=== PATIENT | female | born 2000 | race Caucasian/White ===

== ENCOUNTER 2023-01-03 09:37 | Inpatient (IN) | payer MEDICAID ==
[~2023-01-03] VITALS: Ht 157.5 cm; Wt 63.5 kg
[2023-01-03] MEDS ORDERED: BUTORPHANOL TARTRATE 2 MG/ML VIAL IV PRN (11:30)
[2023-01-03] MEDS ORDERED: NALOXONE HCL 0.4 MG/ML 1ML VIAL IM PRN (11:30)
[2023-01-03] MEDS ORDERED: LIDOCAINE HCL 1% 20ML VIAL (Pyxis) INJ INFIL SCH (11:30)
[2023-01-03] MEDS ORDERED: BUTORPHANOL TARTRATE 2 MG/ML VIAL IM PRN ×2 (11:30)
[2023-01-03] MEDS ORDERED: METHYLERGONOVINE MALEATE 0.2 MG/ML IM PRN ×2 (11:30→19:30)
[2023-01-03] MEDS ORDERED: CARBOPROST TROMETHAMINE 250 MCG/ML AMPUL IM PRN (11:30)
[2023-01-03] MEDS ORDERED: LACTATED RINGERS 1,000 ML IV SCH (11:30)
[2023-01-03 13:44] LABS: CLARITY URINE CLOUDY (CLEAR); COLOR URINE YELLOW (YELLOW); KETONES URINE NEGATIVE (NEGATIVE); LEUKOCYTE ESTERASE URINE 3+ (NEGATIVE); NITRITE URINE NEGATIVE (NEGATIVE); OCCULT BLOOD URINE 2+ (NEGATIVE); PROTEIN URINE TRACE (NEGATIVE); SPECIFIC GRAVITY URINE 1.013 (1.005-1.030)
[2023-01-03 13:47] LABS: BASOPHILS % 0.2 % (0.0-2.0); EOSINOPHILS % 0.1 % (0.0-5.0); HEMATOCRIT. 34.5 % (36.0-48.0); HEMOGLOBIN. 10.9 g/dL (12.0-16.0); MEAN CORPUSCULAR VOLUME 76.2 fL (81.0-99.0); MEAN PLATELET VOLUME 11.1 fl (7.4-10.4); MONOCYTES % 3.9 % (2.0-8.0); NEUTROPHILS % 79.8 % (40.0-76.0); PLATELET 201 x1000/uL (130-400); RED BLOOD CELL COUNT 4.52 mill/uL (4.2-5.4); RED CELL DISTRIBUTION WIDTH 24.8 % (11.6-14.6)
[2023-01-03 13:53] LABS: INR 0.9; PARTIAL THROMBOPLASTIN TIME 27.6 sec (23.4-31.0); PROTHROMBIN TIME 9.7 sec (9.6-11.0)
[2023-01-03 14:11] LABS: *AMPHETAMINES SCREEN URINE NEGATIVE (NEGATIVE); *BARBITURATES SCREEN URINE NEGATIVE (NEGATIVE); *BENZODIAZEPINES SCREEN URINE NEGATIVE (NEGATIVE); *COCAINE SCREEN URINE NEGATIVE (NEGATIVE); CANNABINOID URINE SCREEN NEGATIVE (NEGATIVE); METHADONE URINE SCREEN NEGATIVE (NEGATIVE); OPIATES URINE SCREEN NEGATIVE (NEGATIVE); PHENCYCLIDINE URINE SCREEN NEGATIVE (NEGATIVE)
[2023-01-03 14:43] LABS: PLATELET ESTIMATE NORMAL
[2023-01-03 15:15] LABS: HEPATITIS B SURFACE ANTIGEN NEGATIVE
[2023-01-03] MEDS: OXYTOCIN 30 UNITS/500ML NS PMX 500 ML IV SCH ×2 (19:16→21:06)
[2023-01-03] MEDS ORDERED: IBUPROFEN 400MG TABLET PO PRN (19:30)
[2023-01-03] MEDS ORDERED: OXYTOCIN 30 UNITS/500ML NS PMX 500 ML IV SCH (19:30)
[2023-01-03] MEDS ORDERED: RHO(D) IMMUNE GLOBULIN 300 MCG/SYR IM PRN (19:30)
[2023-01-03] MEDS ORDERED: LANOLIN OINT 7GM TUBE TOP PRN (19:30)
[2023-01-03] MEDS: IBUPROFEN 800MG TABLET PO PRN (21:07)
[2023-01-03 21:50] VITALS: BP 101/57
[2023-01-03 22:20] VITALS: BP 107/55
[2023-01-03] MEDS ORDERED: PREN-176 PO (22:24)
[2023-01-03 23:00] VITALS: BP 109/62
[2023-01-04 03:30] VITALS: BP 102/52
[2023-01-04 07:36] LABS: BASOPHILS % 0.2 % (0.0-2.0); EOSINOPHILS % 0.1 % (0.0-5.0); HEMATOCRIT. 28.8 % (36.0-48.0); LYMPHOCYTES % 16.1 % (20.0-50.0); MEAN CORPUSCULAR HEMOGLOBIN 23.9 pg (28.0-32.0); MEAN PLATELET VOLUME 10.5 fl (7.4-10.4); MONOCYTES % 6.3 % (2.0-8.0); NEUTROPHILS % 77.3 % (40.0-76.0); PLATELET 176 x1000/uL (130-400); RED BLOOD CELL COUNT 3.75 mill/uL (4.2-5.4); RED CELL DISTRIBUTION WIDTH 23.9 % (11.6-14.6)
[2023-01-04 08:00] VITALS: BP 100/53
[2023-01-04] MEDS: PRENATAL VIT/FE FUMARATE/FA TABLET PO SCH (09:00)
[2023-01-04] MEDS: IBUPROFEN 800MG TABLET PO PRN ×2 (14:34→20:11)
[2023-01-04 16:00] VITALS: BP 97/57
[2023-01-04 20:00] VITALS: BP 105/60
[2023-01-05 04:00] VITALS: BP 102/52
[2023-01-05] MEDS: PRENATAL VIT/FE FUMARATE/FA TABLET PO SCH (07:55)
[2023-01-05] MEDS: IBUPROFEN 800MG TABLET PO PRN (07:56)
[2023-01-05 08:00] VITALS: BP 101/61
== END 2023-01-05 14:50 | disposition home or self-care (01) | DRG 560 ==
LOC: 8 EST LDRP 09:37 → OBSVTOIN 09:37 → 8EST 21:27
PROVIDERS: ADMIT Obstetrics & Gynecology; ATTEND Obstetrics & Gynecology
PROC: 10E0XZZ Delivery of Products of Conception, External Approach (ICD-10-PCS; principal; 2023-01-03)
PROC: 0KQM0ZZ Repair Perineum Muscle, Open Approach (ICD-10-PCS; 2023-01-03)
DX: O69.81X0 Labor and delivery complicated by cord around neck, without compression, not applicable or unspecified (principal); Z37.0 Single live birth; D62 Acute posthemorrhagic anemia; O70.1 Second degree perineal laceration during delivery; O99.02 Anemia complicating childbirth; Z3A.38 38 weeks gestation of pregnancy
CPT/HCPCS: 36415; 76805; 76818; 80305; 81003; 85025; 86592; 86703; 86762; 86850; 86900; 87340; 87426; 99281; J0595; J3490; J7120; J2590